=== PATIENT | female | born 1950 | race Caucasian/White ===

== ENCOUNTER 2019-02-26 10:10 | Observation (INO) | payer MEDICARE, OTHER ==
[2019-02-26] MEDS ORDERED: Aspirin 81 MG Tab.Chew PO ONE (10:16)
[2019-02-26] MEDS ORDERED: Sodium Chloride 0.9% 2.5 ML Syringe FLUSH PRN (10:16)
[2019-02-26] MEDS ORDERED: Sodium Chloride 0.9% 10 ML Syringe FLUSH PRN (10:16)
--- NOTE | 2019-02-26 10:18 | EDM.PDOC ---
ED HPI GENERAL MEDICAL PROBLEM - General Chief Complaint: Chest Pain Stated Complaint: CHEST PAIN Time Seen by Provider: 02/26/19 10:15 Source of Information: Reports: Patient History Limitations: Reports: No Limitations - History of Present Illness INITIAL COMMENTS - FREE TEXT/NARRATIVE: HISTORY AND PHYSICAL: History of present illness: Patient is a 68-year-old female who presents to the emergency room today with complaints of chest heaviness. She states approximately 30-45 minutes prior to arrival she was sitting in her recliner and watching TV. She had a sudden onset of chest heaviness, nausea coming diaphoresis and feeling generally unwell. She states this lasted for approximately 15 minutes. Symptoms have resolved but she does continue to have the sensation of pressure and heaviness into her mid anterior chest. She states prior to this event she had felt well and had no systemic concerns or complaints. She has no personal history of heart disease. Does have a past history of smoking. Patient does want to mention that over the past 3 weeks she has been having generalized headaches which have been worse than normal. She has the sensation of "ringing in my ears". She denies any new medications or over-the- counter medication consumption. Patient denies any fever, chills, change in vision, syncope or near syncope. Denies any back pain, shortness of breath or cough. Denies any abdominal pain, vomiting, diarrhea, constipation or dysuria. Has not noted any blood in urine or stool. Patient has been eating and drinking appropriately. Review of systems: As per history of present illness and below otherwise all systems reviewed and negative. Past medical history: As per history of present illness and as reviewed below otherwise noncontributory. Surgical history: As per history of present illness and as reviewed below otherwise noncontributory. Social history: See social history for further information Family history: As per history of present illness and as reviewed below otherwise noncontributory. Physical exam: General: Well-developed and well-nourished 68-year-old female. Alert and oriented. Nontoxic appearing and in no acute distress. HEENT: Atraumatic, normocephalic, pupils equal and reactive bilaterally, negative for conjunctival pallor or scleral icterus, mucous membranes moist, TMs normal bilaterally, throat clear, neck supple, nontender, trachea midline. No drooling or trismus noted. No meningeal signs. No hot potato voice noted. Lungs: Clear to auscultation, breath sounds equal bilaterally, chest nontender. Heart: S1S2, regular rate and rhythm without overt murmur Abdomen: Soft, nondistended, nontender. Negative for masses or hepatosplenomegaly. Negative for costovertebral tenderness. Pelvis: Stable nontender. Skin: Intact, warm, dry. No lesions or rashes noted. Extremities: Atraumatic, moves all extremities per self without difficulty or deficits, negative for cords or calf pain. Neurovascular unremarkable. Neuro: Awake, alert, oriented. Cranial nerves II through XII unremarkable. Cerebellum unremarkable. Motor and sensory unremarkable throughout. Exam nonfocal. Notes: EKG shows no acute findings. Lab work is unremarkable. Dr. Scott was consult did on this case. She'll be admitted for observation with telemetry to rule out MS. Diagnostics: CBC, CMP, UA, Troponin, EKG, Chest x-ray, Head CT Therapeutics: Saline Lock, Aspirin Impression: Chest Pain Plan: Observation admission to Med/Surg with telemetry Definitive disposition and diagnosis as appropriate pending reevaluation and review of above. - Related Data Allergies Allergy/AdvReac Type Severity Reaction Status Date / Time amoxicillin [From Augmentin] Allergy Cannot Verified 02/26/19 10:54 Remember clavulanic acid Allergy Cannot Verified 02/26/19 10:54 [From Augmentin] Remember levofloxacin [From Levaquin] Allergy Cannot Verified 02/26/19 10:26 Remember Home Meds: Home Meds Amitriptyline [Elavil] 10 mg PO DAILY 02/26/19 [History] Aspirin [Ecotrin EC] 81 mg PO DAILY 02/26/19 [History] Cetirizine [ZyrTEC] 10 mg PO DAILY 02/26/19 [History] Cranberry 500 mg PO DAILY 02/26/19 [History] Fluticasone Propionate [Flonase Allergy Relief] 50 mcg NASBOTH DAILY 02/26/19 [ History] Losartan/Hydrochlorothiazide [Losartan-HCTZ 50-12.5 MG] 1 tab PO DAILY 02/26/19 [History] Omeprazole Magnesium [Prilosec Otc] 20 mg PO DAILY 02/26/19 [History] Sertraline HCl [Zoloft] 50 mg PO DAILY 02/26/19 [History] amLODIPine [Norvasc] 5 mg PO DAILY 02/26/19 [History] atorvaSTATin [Lipitor] 20 mg PO DAILY 02/26/19 [History] ED ROS GENERAL - Review of Systems Review Of Systems: ROS reveals no pertinent complaints other than HPI. ED EXAM, GENERAL - Physical Exam Exam: See Below (See dictation) Course - Vital Signs Last Recorded V/S: Last Vital Signs Temp 97.3 F 02/26/19 10:23 Pulse 92 02/26/19 10:23 Resp 18 02/26/19 10:23 BP 162/87 H 02/26/19 10:23 Pulse Ox 95 02/26/19 10:23 - Orders/Labs/Meds Orders: Active Orders 24 hr Category Date Time Status Admission Status [Patient Status] [ADT] Stat ADT 02/26/19 11:21 Ordered EKG Documentation Completion [RC] STAT Care 02/26/19 10:16 Active Orthostatic Vital Signs [RC] ASDIRECTED Care 02/26/19 10:27 Active Head wo Cont [CT] Stat Exams 02/26/19 10:27 Taken UA RFX BRIAN AND CULT IF INDIC [URIN] Stat Lab 02/26/19 10:27 Ordered Sodium Chloride 0.9% [Saline Flush] Med 02/26/19 10:16 Active 10 ml FLUSH ASDIRECTED PRN Sodium Chloride 0.9% [Saline Flush] Med 02/26/19 10:16 Active 2.5 ml FLUSH ASDIRECTED PRN Saline Lock Insert [OM.PC] Stat Oth 02/26/19 10:16 Ordered Medication Orders Sodium Chloride (Saline Flush) 10 ml FLUSH ASDIRECTED PRN PRN Reason: Keep Vein Open Last Admin: 02/26/19 10:37 Dose: 10 ml Sodium Chloride (Saline Flush) 2.5 ml FLUSH ASDIRECTED PRN PRN Reason: Keep Vein Open Last Admin: 02/26/19 10:37 Dose: 2.5 ml Labs: Laboratory Tests 02/26/19 02/26/19 Range/Units 10:31 10:31 WBC 5.75 (4.0-11.0) K/uL RBC 5.06 (4.30-5.90) M/uL Hgb 14.8 (12.0-16.0) g/dL Hct 44.6 (36.0-46.0) % MCV 88.1 (80.0-98.0) fL MCH 29.2 (27.0-32.0) pg MCHC 33.2 (31.0-37.0) g/dL RDW Std Deviation 42.9 (28.0-62.0) fl RDW Coeff of Guido 13 (11.0-15.0) % Plt Count 257 (150-400) K/uL MPV 11.00 (7.40-12.00) fL Neut % (Auto) 47.0 L (48.0-80.0) % Lymph % (Auto) 42.4 H (16.0-40.0) % [place] % (Auto) 8.0 (0.0-15.0) % Eos % (Auto) 2.3 (0.0-7.0) % Baso % (Auto) 0.3 (0.0-1.5) % Neut # (Auto) 2.7 (1.4-5.7) K/uL Lymph # (Auto) 2.4 (0.6-2.4) K/uL [place] # (Auto) 0.5 (0.0-0.8) K/uL Eos # (Auto) 0.1 (0.0-0.7) K/uL Baso # (Auto) 0.0 (0.0-0.1) K/uL Nucleated RBC % 0.0 /100WBC Nucleated RBCs # 0 K/uL Sodium 138 (136-145) mmol/L Potassium 3.9 (3.5-5.1) mmol/L Chloride 102 (98-107) mmol/L Carbon Dioxide 25.6 (21.0-32.0) mmol/L BUN 10 (7.0-18.0) mg/dL Creatinine 0.9 (0.6-1.0) mg/dL Est Cr Clr Drug Dosing 50.18 mL/min Estimated GFR (MDRD) > 60.0 ml/min Glucose 115 H (74-106) mg/dL Calcium 9.1 (8.5-10.1) mg/dL Total Bilirubin 0.6 (0.2-1.0) mg/dL AST 23 (15-37) IU/L ALT 32 (14-63) IU/L Alkaline Phosphatase 116 (46-116) U/L Troponin I < 0.050 (0.000-0.056) ng/mL Total Protein 7.3 (6.4-8.2) g/dL Albumin 3.6 (3.4-5.0) g/dL Globulin 3.7 (2.6-4.0) g/dL Albumin/Globulin Ratio 1.0 (0.9-1.6) Meds: Medications Generic Name Dose Route Start Last Admin Trade Name Freq PRN Reason Stop Dose Admin Sodium Chloride 10 ml 02/26/19 10:16 02/26/19 10:37 Saline Flush FLUSH 10 ml ASDIRECTED PRN Administration Keep Vein Open Sodium Chloride 2.5 ml 02/26/19 10:16 02/26/19 10:37 Saline Flush FLUSH 2.5 ml ASDIRECTED PRN Administration Keep Vein Open Discontinued Medications Generic Name Dose Route Start Last Admin Trade Name Freq PRN Reason Stop Dose Admin Aspirin 324 mg 02/26/19 10:16 02/26/19 10:36 Aspirin PO 02/26/19 10:17 324 mg ONETIME ONE Administration Departure - Departure Time of Disposition: 11:26 Disposition: Refer to Observation Clinical Impression: Chest pain, rule out acute myocardial infarction Referrals: PCP,Unknown [Primary Care Provider] - Forms: ED Department Discharge - My Orders Last 24 Hours: My Active Orders 02/26/19 10:16 EKG Documentation Completion [RC] STAT Sodium Chloride 0.9% [Saline Flush] 10 ml FLUSH ASDIRECTED PRN Sodium Chloride 0.9% [Saline Flush] 2.5 ml FLUSH ASDIRECTED PRN Saline Lock Insert [OM.PC] Stat 02/26/19 10:27 Orthostatic Vital Signs [RC] ASDIRECTED Head wo Cont [CT] Stat UA RFX BRIAN AND CULT IF INDIC [URIN] Stat 02/26/19 11:21 Admission Status [Patient Status] [ADT] Stat - Assessment/Plan Last 24 Hours: My Active Orders 02/26/19 10:16 EKG Documentation Completion [RC] STAT Sodium Chloride 0.9% [Saline Flush] 10 ml FLUSH ASDIRECTED PRN Sodium Chloride 0.9% [Saline Flush] 2.5 ml FLUSH ASDIRECTED PRN Saline Lock Insert [OM.PC] Stat 02/26/19 10:27 Orthostatic Vital Signs [RC] ASDIRECTED Head wo Cont [CT] Stat UA RFX BRIAN AND CULT IF INDIC [URIN] Stat 02/26/19 11:21 Admission Status [Patient Status] [ADT] Stat
[2019-02-26 11:08] LABS: BLOOD UREA NITROGEN,BUN 10 mg/dL (7.0-18.0); CARBON DIOXIDE,CO2 25.6 mmol/L (21.0-32.0); CHLORIDE,CL 102 mmol/L (98-107); GLUCOSE RANDOM 115 mg/dL (74-106); POTASSIUM,K 3.9 mmol/L (3.5-5.1); SODIUM,NA 138 mmol/L (136-145)
--- NOTE | 2019-02-26 11:54 | CT ---
Head CT Technique: Multiple axial sections through the brain were obtained. Intravenous contrast was not utilized. Comparison: No previous intracranial imaging is available. Findings: Ventricles along with basal cisterns and sulci over the convexities appear within normal limits for the patient's age. No abnormal parenchymal densities are seen. No evidence of intracranial hemorrhage. No midline shift or mass effect is seen. Bone window settings were reviewed which shows no acute calvarial abnormality. Visualized paranasal sinuses and mastoid sinuses are clear. Impression: Nothing acute is appreciated on noncontrast head CT exam. Diagnostic code #1 MTDD
--- NOTE | 2019-02-26 12:20 | PCM.HP.2 ---
H&P History of Present Illness - General Date of Service: 02/26/19 Admit Problem/Dx: Admission Diagnosis/Problem Admission Diagnosis/Problem Chest pain, rule out acute myocardial infarction Source of Information: Patient History Limitations: Reports: No Limitations - History of Present Illness Initial Comments - Free Text/Narative: This 68 year old female with pmh of HTN, coronary artery spasmand psoriasis presented to the ED today with complaints of chest heaviness. She was sitting in her recliner and watching TV, when she experienced a sudden onset of chest heaviness, nausea with diaphoresis and feeling generally unwell. She states this lasted for approximately 15 minutes. By the time of arrival, symptoms resolved nearly completely but does continue to have the sensation of pressure and heaviness into her mid anterior chest. She reports she has otherwise been feeling ok, except for noticing ringing in her ears and mild headache that has been off and on for the last few weeks. She reports 3-4 weeks ago, she ran out of Norvasc and felt she wanted to trial without it. She reports this was started of coronary artery spasms a few years ago. She reports she is feeling similar to when these occurred then. She reports having stress test and angiogram then, with no subsequent stenting, just noted the coronary artery spasms. She reports mild congestion today, but she has not taken her Zyrtec or Flonase. She denies any fever, chills, change in vision, syncope or near syncope. Denies any back pain, shortness of breath or cough. Denies any abdominal pain, vomiting, diarrhea, constipation or dysuria. Has not noted any blood in urine or stool. She reports she used to smoke, but quit 20 years ago, social alcohol use, and no recreational drug use.No history of CAD. Inthe ED labwork essential normal, slightly elevated gluse 115, Troponin negative. head CT negative. CXTR negative. EKG SR with no acute ST changes. She will be admitted for chest pain rule out [place] PCPBola [place] - Related Data Allergies/Adverse Reactions: Allergies Allergy/AdvReac Type Severity Reaction Status Date / Time amoxicillin [From Augmentin] Allergy Cannot Verified 02/26/19 10:54 Remember clavulanic acid Allergy Cannot Verified 02/26/19 10:54 [From Augmentin] Remember levofloxacin [From Levaquin] Allergy Cannot Verified 02/26/19 10:26 Remember Home Medications: Home Meds Amitriptyline [Elavil] 10 mg PO DAILY 02/26/19 [History] Aspirin [Ecotrin EC] 81 mg PO DAILY 02/26/19 [History] Cetirizine [ZyrTEC] 10 mg PO DAILY 02/26/19 [History] Cranberry 500 mg PO DAILY 02/26/19 [History] Fluticasone Propionate [Flonase Allergy Relief] 50 mcg NASBOTH DAILY 02/26/19 [ History] Losartan/Hydrochlorothiazide [Losartan-HCTZ 50-12.5 MG] 1 tab PO DAILY 02/26/19 [History] Omeprazole Magnesium [Prilosec Otc] 20 mg PO DAILY 02/26/19 [History] Sertraline HCl [Zoloft] 50 mg PO DAILY 02/26/19 [History] amLODIPine [Norvasc] 5 mg PO DAILY 02/26/19 [History] atorvaSTATin [Lipitor] 20 mg PO DAILY 02/26/19 [History] Past Medical History Cardiovascular History: Reports: High Cholesterol, Hypertension Respiratory History: Reports: COPD Gastrointestinal History: Reports: GERD - Infectious Disease History Infectious Disease History: Reports: Chicken Pox, Measles, Mumps Social & Family History - Family History Family Medical History: Noncontributory - Tobacco Use Smoking Status *Q: Former Smoker Used Tobacco, but Quit: Yes Month/Year Tobacco Last Used: years - Caffeine Use Caffeine Use: Reports: Coffee - Alcohol Use Alcohol Use History: No Alcohol Use Frequency: Socially - Recreational Drug Use Recreational Drug Use: No H&P Review of Systems - Review of Systems: Review Of Systems: See Below General: Reports: No Symptoms. Denies: Fever, Chills, Malaise Pulmonary: Reports: Shortness of Breath (since gone) Cardiovascular: Reports: Chest Pain (pressure heaviness like.), Lightheadedness Gastrointestinal: Reports: No Symptoms Genitourinary: Reports: No Symptoms. Denies: Dysuria, Frequency, Burning Musculoskeletal: Reports: No Symptoms Skin: Reports: No Symptoms Psychiatric: Reports: No Symptoms Neurological: Reports: No Symptoms Hematologic/Lymphatic: Reports: No Symptoms Immunologic: Reports: No Symptoms Exam - Exam Exam: See Below - Vital Signs Vital Signs: Last Vital Signs Temp 97.3 F 02/26/19 10:23 Pulse 92 09/23/19 10:23 Resp 18 02/26/19 10:23 BP 162/87 H 02/26/19 10:23 Pulse Ox 95 02/26/19 10:23 Orthostatic Blood Pressure [ 115/81 Standing] Orthostatic Blood Pressure [ 121/80 Sitting] Orthostatic Blood Pressure [ 131/74 Supine] Weight: 74.843 kg - Exam General: Alert, Oriented, Cooperative Neck: Supple, Trachea Midline Lungs: Clear to Auscultation, Normal Respiratory Effort Cardiovascular: Regular Rate, Regular Rhythm, Normal S1, Normal S2. No: Systolic Murmur GI/Abdominal Exam: Normal Bowel Sounds, Soft, Non-Tender, No Organomegaly Extremities: Normal Inspection, Normal Range of Motion, Non-Tender, No Pedal Edema Neuro Extensive - Mental Status: Alert, Oriented x3 Neuro Extensive - Motor, Sensory, Reflexes: CN II-XII Intact Psychiatric: Alert, Normal Affect, Normal Mood - Patient Data Lab Results Last 24 hrs: Laboratory Results - last 24 hr 02/26/19 02/26/19 02/26/19 Range/Units 10:31 10:31 11:38 WBC 5.75 (4.0-11.0) K/uL RBC 5.06 (4.30-5.90) M/uL Hgb 14.8 (12.0-16.0) g/dL Hct 44.6 (36.0-46.0) % MCV 88.1 (80.0-98.0) fL MCH 29.2 (27.0-32.0) pg MCHC 33.2 (31.0-37.0) g/dL RDW Std Deviation 42.9 (28.0-62.0) fl RDW Coeff of Guido 13 (11.0-15.0) % Plt Count 257 (150-400) K/uL MPV 11.00 (7.40-12.00) fL Neut % (Auto) 47.0 L (48.0-80.0) % Lymph % (Auto) 42.4 H (16.0-40.0) % [place] % (Auto) 8.0 (0.0-15.0) % Eos % (Auto) 2.3 (0.0-7.0) % Baso % (Auto) 0.3 (0.0-1.5) % Neut # (Auto) 2.7 (1.4-5.7) K/uL Lymph # (Auto) 2.4 (0.6-2.4) K/uL [place] # (Auto) 0.5 (0.0-0.8) K/uL Eos # (Auto) 0.1 (0.0-0.7) K/uL Baso # (Auto) 0.0 (0.0-0.1) K/uL Nucleated RBC % 0.0 /100WBC Nucleated RBCs # 0 K/uL Sodium 138 (136-145) mmol/L Potassium 3.9 (3.5-5.1) mmol/L Chloride 102 (98-107) mmol/L Carbon Dioxide 25.6 (21.0-32.0) mmol/L BUN 10 (7.0-18.0) mg/dL Creatinine 0.9 (0.6-1.0) mg/dL Est Cr Clr Drug Dosing 50.18 mL/min Estimated GFR (MDRD) > 60.0 ml/min Glucose 115 H (74-106) mg/dL Calcium 9.1 (8.5-10.1) mg/dL Total Bilirubin 0.6 (0.2-1.0) mg/dL AST 23 (15-37) IU/L ALT 32 (14-63) IU/L Alkaline Phosphatase 116 (46-116) U/L Troponin I < 0.050 (0.000-0.056) ng/mL Total Protein 7.3 (6.4-8.2) g/dL Albumin 3.6 (3.4-5.0) g/dL Globulin 3.7 (2.6-4.0) g/dL Albumin/Globulin Ratio 1.0 (0.9-1.6) Urine Color YELLOW Urine Appearance CLEAR Urine pH 7.5 (5.0-8.0) Ur Specific [place] <= 1.005 (1.001-1.035) Urine Protein NEGATIVE (NEGATIVE) mg/dL Urine Glucose (UA) NEGATIVE (NEGATIVE) mg/dL Urine Ketones NEGATIVE (NEGATIVE) mg/dL Urine Occult Blood NEGATIVE (NEGATIVE) Urine Nitrite NEGATIVE (NEGATIVE) Urine Bilirubin NEGATIVE (NEGATIVE) Urine Urobilinogen 0.2 (<2.0) EU/dL Ur Leukocyte Esterase NEGATIVE (NEGATIVE) Result Diagrams: 02/26/19 10:31 02/26/19 10:31 EKG INTERPRETATION EKG Date: 02/26/19 Rhythm: NSR P-Wave: Present QRS: Normal ST-T: Normal QT: Normal *Q Meaningful Use (ADM) - VTE Risk Assess *Q Each Risk Factor Represents 1 Point: Obesity ( BMI > 25 kg/m2) Total Score 1 Point Risk Factors: 1 Each Risk Factor Represents 2 Points: Age 60 - 74 Years Total Score 2 Point Risk Factors: 2 Each Risk Factor Represents 3 Points: None Total Score 3 Point Risk Factors: 0 Each Risk Factor Represents 5 Points: None Total Score 5 Point Risk Factors: 0 Venous Thromboembolism Risk Factor Score *Q: 3 - Problem List (1) Chest pain, rule out acute myocardial infarction SNOMED Code(s): 83450040 ICD Code: R07.9 - CHEST PAIN, UNSPECIFIED Status: Acute Current Visit: Yes (2) HTN (hypertension) SNOMED Code(s): 57238843 ICD Code: I10 - ESSENTIAL (PRIMARY) HYPERTENSION Status: Chronic Current Visit: Yes (3) Coronary artery spasm SNOMED Code(s): 55640157 ICD Code: I20.1 - ANGINA PECTORIS WITH DOCUMENTED SPASM Status: Chronic Current Visit: Yes (4) Dyslipidemia SNOMED Code(s): 565750302 ICD Code: E78.5 - HYPERLIPIDEMIA, UNSPECIFIED Status: Chronic Current Visit: Yes Problem List Initiated/Reviewed/Updated: Yes Orders Last 24hrs: Active Orders 24 hr Category Date Time Status Admission Status [Patient Status] [ADT] Stat ADT 02/26/19 11:21 Active EKG Documentation Completion [RC] STAT Care 02/26/19 10:16 Active Orthostatic Vital Signs [RC] ASDIRECTED Care 02/26/19 10:27 Active Telemetry Monitoring [Cardiac Monitoring] [RC] . Care 02/26/19 12:12 Active DIRECTED Chest 1V Frontal [CR] Stat Exams 02/26/19 12:17 Ordered Sodium Chloride 0.9% [Saline Flush] Med 02/26/19 10:16 Active 10 ml FLUSH ASDIRECTED PRN Sodium Chloride 0.9% [Saline Flush] Med 02/26/19 10:16 Active 2.5 ml FLUSH ASDIRECTED PRN Saline Lock Insert [OM.PC] Stat Oth 02/26/19 10:16 Ordered Medication Orders Sodium Chloride (Saline Flush) 10 ml FLUSH ASDIRECTED PRN PRN Reason: Keep Vein Open Last Admin: 02/26/19 10:37 Dose: 10 ml Sodium Chloride (Saline Flush) 2.5 ml FLUSH ASDIRECTED PRN PRN Reason: Keep Vein Open Last Admin: 02/26/19 10:37 Dose: 2.5 ml Assessment/Plan Comment:: This 68 year old female admitted with chest pain 1. Chest pain: Monitor on telemetry, trend troponins. Restart Amlodipine. A1c 6.0, obtain lipid panel. Obtain ECHO. Will need outpatient stress test. 2. HTN: Stable. Continue home medications. Monitor VTE prophylaxis: SCDs Dispo: 1 day - Mortality Measure Prognosis:: Good
[2019-02-26] MEDS ORDERED: Ondansetron 4 MG/2 ML SDV IVPUSH PRN (12:36)
--- NOTE | 2019-02-26 13:13 | CR ---
Chest: Frontal view of the chest was obtained. Study obtained utilizing portable technique. Comparison: No previous study. Heart size and mediastinum are normal. Lungs are clear. Scoliosis is noted within the spine. Impression: Nothing acute is seen on portable chest x-ray. Diagnostic code #2 MTDD
[2019-02-26] MEDS: Acetaminophen 325 MG Tab PO PRN ×2 (13:34→18:50)
[2019-02-26] MEDS: Cetirizine 10 MG Tab PO SCH (13:34)
[2019-02-26] MEDS: Fluticasone Propionate Nasal Spray 16 GM Bottle NASBOTH SCH (13:35)
[2019-02-26] MEDS: amLODIPine 5 MG Tab PO SCH (13:36)
[2019-02-27] MEDS ORDERED: atorvaSTATin 20 MG Tab PO SCH (09:00)
[2019-02-27] MEDS ORDERED: Omeprazole 20 MG Cap.CR PO SCH (09:00)
[2019-02-27] MEDS ORDERED: Sertraline 50 MG Tab PO SCH (09:00)
[2019-02-27] MEDS ORDERED: Amitriptyline 10 MG Tab PO SCH (09:00)
[2019-02-27] MEDS ORDERED: Aspirin 81 MG Tab.EC PO SCH (09:00)
[2019-02-27] MEDS ORDERED: Hydrochlorothiazide/Losartan 12.5-50 mg Tab PO SCH (09:00)
--- NOTE | 2019-02-27 09:01 | PCM.DCSUM1 ---
Discharge Summary - Hospital Course Brief History: This 68 year old female with pmh of HTN, coronary artery spasmand psoriasis presented to the ED today with complaints of chest heaviness. She was sitting in her recliner and watching TV, when she experienced a sudden onset of chest heaviness, nausea with diaphoresis and feeling generally unwell. She states this lasted for approximately 15 minutes. By the time of arrival, symptoms resolved nearly completely but does continue to have the sensation of pressure and heaviness into her mid anterior chest. She reports she has otherwise been feeling ok, except for noticing ringing in her ears and mild headache that has been off and on for the last few weeks. She reports 3-4 weeks ago, she ran out of Norvasc and felt she wanted to trial without it. She reports this was started of coronary artery spasms a few years ago. She reports she is feeling similar to when these occurred then. She reports having stress test and angiogram then, with no subsequent stenting, just noted the coronary artery spasms. She reports mild congestion today, but she has not taken her Zyrtec or Flonase. She denies any fever, chills, change in vision, syncope or near syncope. Denies any back pain, shortness of breath or cough. Denies any abdominal pain, vomiting, diarrhea, constipation or dysuria. Has not noted any blood in urine or stool. She reports she used to smoke, but quit 20 years ago, social alcohol use, and no recreational drug use.No history of CAD. Inthe ED labwork essential normal, slightly elevated gluse 115, Troponin negative. head CT negative. CXTR negative. EKG SR with no acute ST changes. She will be admitted for chest pain rule out MS. PCPBola [place] Diagnosis: Stroke: No - Discharge Data Discharge Date: 02/27/19 Discharge Disposition: Home, Self-Care 01 Condition: Stable - Referral to Home Health Primary Care Physician: PCP Unknown - Discharge Diagnosis/Problem(s) (1) Chest pain, rule out acute myocardial infarction SNOMED Code(s): 48062422 ICD Code: R07.9 - CHEST PAIN, UNSPECIFIED Status: Acute Current Visit: Yes (2) HTN (hypertension) SNOMED Code(s): 51427317 ICD Code: I10 - ESSENTIAL (PRIMARY) HYPERTENSION Status: Chronic Current Visit: Yes (3) Coronary artery spasm SNOMED Code(s): 57798457 ICD Code: I20.1 - ANGINA PECTORIS WITH DOCUMENTED SPASM Status: Chronic Current Visit: Yes (4) Dyslipidemia SNOMED Code(s): 388510012 ICD Code: E78.5 - HYPERLIPIDEMIA, UNSPECIFIED Status: Chronic Current Visit: Yes - Patient Instructions Diet: Heart Healthy Diet Activity: No Strenuous Activities Showering/Bathing: May Shower Notify Provider of: Fever, Increased Pain, Swelling and Redness, Drainage, Nausea and/or Vomiting - Discharge Plan *PRESCRIPTION DRUG MONITORING PROGRAM REVIEWED*: Not Applicable *COPY OF PRESCRIPTION DRUG MONITORING REPORT IN PATIENT CIRILO: Not Applicable Home Medications: Home Meds Amitriptyline [Elavil] 10 mg PO DAILY 02/26/19 [History] Aspirin [Ecotrin EC] 81 mg PO DAILY 02/26/19 [History] Cetirizine [ZyrTEC] 10 mg PO DAILY 02/26/19 [History] Cranberry 500 mg PO DAILY 02/26/19 [History] Fluticasone Propionate [Flonase Allergy Relief] 50 mcg NASBOTH DAILY 02/26/19 [ History] Losartan/Hydrochlorothiazide [Losartan-HCTZ 50-12.5 MG] 1 tab PO DAILY 02/26/19 [History] Omeprazole Magnesium [Prilosec Otc] 20 mg PO DAILY 02/26/19 [History] Sertraline HCl [Zoloft] 50 mg PO DAILY 02/26/19 [History] amLODIPine [Norvasc] 5 mg PO DAILY 02/26/19 [History] atorvaSTATin [Lipitor] 20 mg PO DAILY 02/26/19 [History] Oxygen Therapy Mode: Room Air Patient Handouts: Nonspecific Chest Pain, [id number] Referrals: PCP,Unknown [Primary Care Provider] - (follow up with PCP in 1 week. Outpatient stress test in [place], referral sent) - Discharge Summary/Plan Comment DC Time >30 min.: No Discharge Summary/Plan Comment: Admitting Diagnoses: Chest pain HTN Discharge Diagnoses: Chest pain -resolved, likely coronary vasospasm Other PMH Dyslipidemia Coronary artery vasospasms Yesenia was admitted yesterday after episode of chest heaviness associated with nausea, shortness of breath and lightheadedness. She reported had stopped Norvasc 3 weeks prior because she wanted to see if she could come off it. She was started on this medication a sarath time ago for coronary artery vasospasms. She also complained of mild frontal headache and tinnitus. Her troponins were trended, all negative. Monitored on telemetry with no acute ischemic changes. She was restarted on Norvasc 5 mg daily. Overnight she no longer has headache and tinnitus is nearly gone. She has no further chest pressure or chest pain. She is eager for discharge. Lipi panel WNL and A1c 6.0. She is to continue taking all prescribed medications as she was, including Norvasc. She is to follow up with PCP and has outpatient exercise stress test, this will be arranged in [place]. She is here visiting family currently. She is to return to ED or clinic if concerns should arise. - General Info Date of Service: 02/27/19 Admission Dx/Problem (Free Text: Admission Diagnosis/Problem Admission Diagnosis/Problem Chest pain, rule out acute myocardial infarction Subjective Update: Sitting up on edge of bed, doing well this morning. No chest pressure or pain. headache and ringing in the ears is gone. She is eager to go home today. Understands she needs to continue all home medications. Functional Status: Reports: Pain Controlled, Tolerating Diet, Ambulating, Urinating - Review of Systems General: Reports: No Symptoms. Denies: Weakness, Fatigue HEENT: Reports: No Symptoms. Denies: Headaches, Sore Throat, Visual Changes Pulmonary: Reports: No Symptoms. Denies: Shortness of Breath Cardiovascular: Reports: No Symptoms. Denies: Chest Pain Gastrointestinal: Reports: No Symptoms. Denies: Abdominal Pain, Nausea, Vomiting Genitourinary: Reports: No Symptoms Skin: Reports: No Symptoms Neurological: Reports: No Symptoms Psychiatric: Reports: No Symptoms - Patient Data Vitals - Most Recent: Last Vital Signs Temp 96.8 F 02/27/19 04:00 Pulse 79 02/27/19 04:00 Resp 14 02/27/19 04:00 BP 121/75 02/27/19 04:00 Pulse Ox 93 L 02/27/19 04:00 Orthostatic Blood Pressure [ 115/81 Standing] Orthostatic Blood Pressure [ 121/80 Sitting] Orthostatic Blood Pressure [ 131/74 Supine] Weight - Most Recent: 74.843 kg I&O - Last 24 hours: Intake & Output 02/26/19 02/27/19 02/27/19 22:59 06:59 14:59 Intake Total 700 720 240 Output Total 1450 Balance 700 -730 240 Lab Results - Last 24 hrs: Laboratory Results - last 24 hr 02/26/19 02/26/19 02/26/19 Range/Units 10:31 10:31 10:31 WBC 5.75 (4.0-11.0) K/uL RBC 5.06 (4.30-5.90) M/uL Hgb 14.8 (12.0-16.0) g/dL Hct 44.6 (36.0-46.0) % MCV 88.1 (80.0-98.0) fL MCH 29.2 (27.0-32.0) pg MCHC 33.2 (31.0-37.0) g/dL RDW Std Deviation 42.9 (28.0-62.0) fl RDW Coeff of Guido 13 (11.0-15.0) % Plt Count 257 (150-400) K/uL MPV 11.00 (7.40-12.00) fL Neut % (Auto) 47.0 L (48.0-80.0) % Lymph % (Auto) 42.4 H (16.0-40.0) % [place] % (Auto) 8.0 (0.0-15.0) % Eos % (Auto) 2.3 (0.0-7.0) % Baso % (Auto) 0.3 (0.0-1.5) % Neut # (Auto) 2.7 (1.4-5.7) K/uL Lymph # (Auto) 2.4 (0.6-2.4) K/uL [place] # (Auto) 0.5 (0.0-0.8) K/uL Eos # (Auto) 0.1 (0.0-0.7) K/uL Baso # (Auto) 0.0 (0.0-0.1) K/uL Nucleated RBC % 0.0 /100WBC Nucleated RBCs # 0 K/uL Sodium 138 (136-145) mmol/L Potassium 3.9 (3.5-5.1) mmol/L Chloride 102 (98-107) mmol/L Carbon Dioxide 25.6 (21.0-32.0) mmol/L BUN 10 (7.0-18.0) mg/dL Creatinine 0.9 (0.6-1.0) mg/dL Est Cr Clr Drug Dosing 50.18 mL/min Estimated GFR (MDRD) > 60.0 ml/min Glucose 115 H (74-106) mg/dL Hemoglobin A1c 6.0 (4.5-6.2) % Calcium 9.1 (8.5-10.1) mg/dL Total Bilirubin 0.6 (0.2-1.0) mg/dL AST 23 (15-37) IU/L ALT 32 (14-63) IU/L Alkaline Phosphatase 116 (46-116) U/L Troponin I < 0.050 (0.000-0.056) ng/mL Total Protein 7.3 (6.4-8.2) g/dL Albumin 3.6 (3.4-5.0) g/dL Globulin 3.7 (2.6-4.0) g/dL Albumin/Globulin Ratio 1.0 (0.9-1.6) Triglycerides (0-200) mg/dL Cholesterol (50-200) mg/dL LDL Cholesterol, Calc (60-180) mg/dL VLDL Cholesterol (5-55) mg/dL HDL Cholesterol (40-60) mg/dL Cholesterol/HDL Ratio (3.3-6.0) Urine Color Urine Appearance Urine pH (5.0-8.0) Ur Specific [place] (1.001-1.035) Urine Protein (NEGATIVE) mg/dL Urine Glucose (UA) (NEGATIVE) mg/dL Urine Ketones (NEGATIVE) mg/dL Urine Occult Blood (NEGATIVE) Urine Nitrite (NEGATIVE) Urine Bilirubin (NEGATIVE) Urine Urobilinogen (<2.0) EU/dL Ur Leukocyte Esterase (NEGATIVE) 02/26/19 02/26/19 02/26/19 Range/Units 11:38 17:01 22:37 WBC (4.0-11.0) K/uL RBC (4.30-5.90) M/uL Hgb (12.0-16.0) g/dL Hct (36.0-46.0) % MCV (80.0-98.0) fL MCH (27.0-32.0) pg MCHC (31.0-37.0) g/dL RDW Std Deviation (28.0-62.0) fl RDW Coeff of Guido (11.0-15.0) % Plt Count (150-400) K/uL MPV (7.40-12.00) fL Neut % (Auto) (48.0-80.0) % Lymph % (Auto) (16.0-40.0) % [place] % (Auto) (0.0-15.0) % Eos % (Auto) (0.0-7.0) % Baso % (Auto) (0.0-1.5) % Neut # (Auto) (1.4-5.7) K/uL Lymph # (Auto) (0.6-2.4) K/uL [place] # (Auto) (0.0-0.8) K/uL Eos # (Auto) (0.0-0.7) K/uL Baso # (Auto) (0.0-0.1) K/uL Nucleated RBC % /100WBC Nucleated RBCs # K/uL Sodium (136-145) mmol/L Potassium (3.5-5.1) mmol/L Chloride (98-107) mmol/L Carbon Dioxide (21.0-32.0) mmol/L BUN (7.0-18.0) mg/dL Creatinine (0.6-1.0) mg/dL Est Cr Clr Drug Dosing mL/min Estimated GFR (MDRD) ml/min Glucose (74-106) mg/dL Hemoglobin A1c (4.5-6.2) % Calcium (8.5-10.1) mg/dL Total Bilirubin (0.2-1.0) mg/dL AST (15-37) IU/L ALT (14-63) IU/L Alkaline Phosphatase (46-116) U/L Troponin I < 0.050 < 0.050 (0.000-0.056) ng/mL Total Protein (6.4-8.2) g/dL Albumin (3.4-5.0) g/dL Globulin (2.6-4.0) g/dL Albumin/Globulin Ratio (0.9-1.6) Triglycerides (0-200) mg/dL Cholesterol (50-200) mg/dL LDL Cholesterol, Calc (60-180) mg/dL VLDL Cholesterol (5-55) mg/dL HDL Cholesterol (40-60) mg/dL Cholesterol/HDL Ratio (3.3-6.0) Urine Color YELLOW Urine Appearance CLEAR Urine pH 7.5 (5.0-8.0) Ur Specific [place] <= 1.005 (1.001-1.035) Urine Protein NEGATIVE (NEGATIVE) mg/dL Urine Glucose (UA) NEGATIVE (NEGATIVE) mg/dL Urine Ketones NEGATIVE (NEGATIVE) mg/dL Urine Occult Blood NEGATIVE (NEGATIVE) Urine Nitrite NEGATIVE (NEGATIVE) Urine Bilirubin NEGATIVE (NEGATIVE) Urine Urobilinogen 0.2 (<2.0) EU/dL Ur Leukocyte Esterase NEGATIVE (NEGATIVE) 02/27/19 Range/Units 06:25 WBC (4.0-11.0) K/uL RBC (4.30-5.90) M/uL Hgb (12.0-16.0) g/dL Hct (36.0-46.0) % MCV (80.0-98.0) fL MCH (27.0-32.0) pg MCHC (31.0-37.0) g/dL RDW Std Deviation (28.0-62.0) fl RDW Coeff of Guido (11.0-15.0) % Plt Count (150-400) K/uL MPV (7.40-12.00) fL Neut % (Auto) (48.0-80.0) % Lymph % (Auto) (16.0-40.0) % [place] % (Auto) (0.0-15.0) % Eos % (Auto) (0.0-7.0) % Baso % (Auto) (0.0-1.5) % Neut # (Auto) (1.4-5.7) K/uL Lymph # (Auto) (0.6-2.4) K/uL [place] # (Auto) (0.0-0.8) K/uL Eos # (Auto) (0.0-0.7) K/uL Baso # (Auto) (0.0-0.1) K/uL Nucleated RBC % /100WBC Nucleated RBCs # K/uL Sodium (136-145) mmol/L Potassium (3.5-5.1) mmol/L Chloride (98-107) mmol/L Carbon Dioxide (21.0-32.0) mmol/L BUN (7.0-18.0) mg/dL Creatinine (0.6-1.0) mg/dL Est Cr Clr Drug Dosing mL/min Estimated GFR (MDRD) ml/min Glucose (74-106) mg/dL Hemoglobin A1c (4.5-6.2) % Calcium (8.5-10.1) mg/dL Total Bilirubin (0.2-1.0) mg/dL AST (15-37) IU/L ALT (14-63) IU/L Alkaline Phosphatase (46-116) U/L Troponin I (0.000-0.056) ng/mL Total Protein (6.4-8.2) g/dL Albumin (3.4-5.0) g/dL Globulin (2.6-4.0) g/dL Albumin/Globulin Ratio (0.9-1.6) Triglycerides 117 (0-200) mg/dL Cholesterol 174 (50-200) mg/dL LDL Cholesterol, Calc 89 (60-180) mg/dL VLDL Cholesterol 23 (5-55) mg/dL HDL Cholesterol 62 H (40-60) mg/dL Cholesterol/HDL Ratio 2.8 L (3.3-6.0) Urine Color Urine Appearance Urine pH (5.0-8.0) Ur Specific [place] (1.001-1.035) Urine Protein (NEGATIVE) mg/dL Urine Glucose (UA) (NEGATIVE) mg/dL Urine Ketones (NEGATIVE) mg/dL Urine Occult Blood (NEGATIVE) Urine Nitrite (NEGATIVE) Urine Bilirubin (NEGATIVE) Urine Urobilinogen (<2.0) EU/dL Ur Leukocyte Esterase (NEGATIVE) Med Orders - Current: Current Medications Acetaminophen (Tylenol) 650 mg PO Q4H PRN PRN Reason: Pain (mild 1-3) Last Admin: 02/26/19 18:50 Dose: 650 mg Amitriptyline HCl (Elavil) 10 mg PO DAILY [facility] Amlodipine Besylate (Norvasc) 5 mg PO DAILY [facility] Last Admin: 02/26/19 13:36 Dose: 5 mg Aspirin (Halfprin) 81 mg PO DAILY [facility] Atorvastatin Calcium (Lipitor) 20 mg PO DAILY [facility] Cetirizine HCl (Zyrtec) 10 mg PO DAILY [facility] Last Admin: 02/26/19 13:34 Dose: 10 mg Fluticasone Propionate (Flonase) 0 gm NASBOTH DAILY [facility] Last Admin: 02/26/19 13:35 Dose: 1 spray HCTZ/Losartan Potassium (Hyzaar 50-12.5 Mg) 1 tab PO DAILY [facility] Omeprazole (Omeprazole) 20 mg PO DAILY [facility] Ondansetron HCl (Zofran) 4 mg IVPUSH Q4H PRN PRN Reason: Nausea Cranberry 500 Mg 1 each PO DAILY [facility] Sertraline HCl (Zoloft) 50 mg PO DAILY [facility] Sodium Chloride (Saline Flush) 10 ml FLUSH ASDIRECTED PRN PRN Reason: Keep Vein Open Last Admin: 02/26/19 10:37 Dose: 10 ml Sodium Chloride (Saline Flush) 2.5 ml FLUSH ASDIRECTED PRN PRN Reason: Keep Vein Open Last Admin: 02/26/19 10:37 Dose: 2.5 ml Discontinued Medications Aspirin (Aspirin) 324 mg PO ONETIME ONE Stop: 02/26/19 10:17 Last Admin: 02/26/19 10:36 Dose: 324 mg - Exam General: Reports: Alert, Oriented, Cooperative Lungs: Reports: Clear to Auscultation, Normal Respiratory Effort Cardiovascular: Reports: Regular Rate, Regular Rhythm Back Exam: Reports: Normal Inspection, Full Range of Motion Extremities: Normal Inspection, Normal Range of Motion Neurological: Reports: No New Focal Deficit Psy/Mental Status: Reports: Alert, Normal Affect, Normal Mood
[2019-02-27] MEDS: amLODIPine 5 MG Tab PO SCH (09:05)
[2019-02-27] MEDS: Fluticasone Propionate Nasal Spray 16 GM Bottle NASBOTH SCH (09:05)
[2019-02-27] MEDS: Cetirizine 10 MG Tab PO SCH (09:05)
--- NOTE | 2019-02-27 16:14 | ECHO ---
The echocardiogram report can be seen in this patient's EMR (Electronic Medical Record) in the REPORTS section. The echocardiogram has also been scanned into PACS and can be seen there as well. TERRELL
== END 2019-02-27 12:00 | disposition home or self-care (01) ==
LOC: MW.ED 10:10 → MW.MS 11:21
PROVIDERS: ADMIT Internal Medicine; ATTEND Internal Medicine
DX: R07.89 Other chest pain (principal); I10 Essential (primary) hypertension; I20.1 Angina pectoris with documented spasm; E78.00 Pure hypercholesterolemia, unspecified; J44.9 Chronic obstructive pulmonary disease, unspecified; K21.9 Gastro-esophageal reflux disease without esophagitis; E78.5 Hyperlipidemia, unspecified; Z88.1 Allergy status to other antibiotic agents; Z79.82 Long term (current) use of aspirin; Z79.899 Other long term (current) drug therapy; Z87.891 Personal history of nicotine dependence
CPT/HCPCS: 36415; 70450; 71045; 80053; 80061; 81003; 83036; 84484; 85025; 93005; 93306; 99285; A9270; G0378